=== PATIENT | female | born 1995 | race Caucasian/White ===

== ENCOUNTER 2017-02-18 16:12 | Emergency (ER) | payer SELFPAY ==
[~2017-02-18] VITALS: Ht 160 cm; Wt 68.4 kg
[~2017-02-18 16:12] MED LIST: MOTRIN800 MG PO
[2017-02-18 16:35] LABS: HEMATOCRIT 42.8 % (36.0-46.0); MCH 30.6 PG (29.0-34.0); MCHC 34.6 G/DL (30.0-36.0); MCV 88.6 FL (83-99); MEAN PLAT.VOLUME 10.8 uM^3 (9.5-12.4); PLATELET COUNT 227 K/uL (156-360); RBC DIS.WIDTH-CV 11.9 % (11.8-14.6); RBC DIS.WIDTH-SD 38.1 % (39-53); RED BLOOD COUNT 4.83 M/uL (3.80-5.20); WHITE BLOOD COUNT 5.6 K/uL (4.1-10.2)
[2017-02-18 16:44] LABS: CHLORIDE 105 mEq/L (99-109); POTASSIUM 3.7 mEq/L (3.7-5.4); SODIUM 139 mEq/L (136-147)
[2017-02-18 16:46] LABS: GLUCOSE 94 mg/dL (70-99)
[2017-02-18 16:48] LABS: ANION GAP 13 MEQ/L (2-14)
[2017-02-18 16:50] LABS: GFR ESTIMATE (CALCULATED) > 59 mL/min/
[2017-02-18 16:51] LABS: UREA NITROGEN (BUN) 14 mg/dL (9-23)
[2017-02-18 16:56] LABS: TROP-I INTERPRETATION NEGATIVE; TROPONIN-I < 0.01 ng/mL (0.0-0.30)
[2017-02-18 16:58] LABS: QUANTITATIVE HCG < 4.0 MIU/ML
[2017-02-18 18:15] LABS: D-DIMER ELISA 0.35 mg/L FEU (< 0.57)
[2017-02-18] MEDS ORDERED: ATARAX,VISTARIL50 MG PO (19:18)
[2017-02-18 19:35] LABS: TROP-I INTERPRETATION NEGATIVE; TROPONIN-I < 0.01 ng/mL (0.0-0.30)
[2017-02-18 20:27] VITALS: BP 120/88
== END 2017-02-18 20:29 | disposition home or self-care (01) ==
LOC: EME 16:12
PROVIDERS: Physician Assistant Medical
DX: R07.9 Chest pain, unspecified (principal); R06.02 Shortness of breath; R00.2 Palpitations
CPT/HCPCS: 71020; 80048; 82010; 84484; 84702; 85027; 85379; 93005; 99281; 99284; Q0177

== ENCOUNTER 2017-05-05 14:13 | Emergency (ER) | payer OTHER ==
[~2017-05-05] VITALS: Ht 160 cm; Wt 70.5 kg
[~2017-05-05 14:13] MED LIST changes: +ATARAX,VISTARIL50 MG PO
[2017-05-05 17:05] VITALS: BP 147/105
== END 2017-05-05 17:05 | disposition home or self-care (01) ==
LOC: EME 14:13
DX: R51 Headache (principal); V49.40XA Driver injured in collision with unspecified motor vehicles in traffic accident, initial encounter
CPT/HCPCS: 70450; 99281; 99284

== ENCOUNTER 2017-11-09 11:38 | Emergency (ER) | payer OTHER ==
[~2017-11-09] VITALS: Ht 160 cm; Wt 67.8 kg
[2017-11-09 12:30] LABS: CHLORIDE 104 mEq/L (99-109); POTASSIUM 3.6 mEq/L (3.7-5.4)
[2017-11-09 12:31] LABS: SODIUM 135 mEq/L (136-147)
[2017-11-09 12:32] LABS: GLUCOSE 82 mg/dL (70-99)
[2017-11-09 12:36] LABS: CREATININE 0.6 mg/dL (0.6-1.3); GFR ESTIMATE (CALCULATED) > 59 mL/min/
[2017-11-09 12:37] LABS: UREA NITROGEN (BUN) 13 mg/dL (9-23)
[2017-11-09] MEDS ORDERED: ZOFRAN ODT8 MG PO (13:14)
[2017-11-09 13:32] VITALS: BP 128/70
== END 2017-11-09 13:33 | disposition home or self-care (01) ==
LOC: EME 11:38
PROVIDERS: Physician Assistant
DX: O21.9 Vomiting of pregnancy, unspecified (principal); Z3A.15 15 weeks gestation of pregnancy
CPT/HCPCS: 80048; 99281; 99284; J2405